=== PATIENT | female | born 1985 | race Caucasian/White ===

== ENCOUNTER 2016-10-21 13:56 | Emergency (ER) | payer MEDICAID ==
[2016-10-21 14:22] VITALS: BP 130/75
--- NOTE | 2016-10-21 14:53 | EDM.PDOC ---
ED HPI GENERAL MEDICAL PROBLEM - General Chief Complaint: Respiratory Problem Stated Complaint: SOB Time Seen by Provider: 10/21/16 14:07 Source of Information: Reports: Patient, RN Notes Reviewed - History of Present Illness INITIAL COMMENTS - FREE TEXT/NARRATIVE: 31-year-old female has been referred here from the [facility] for evaluation of cough, wheezing, difficulty breathing. She does have history of reactive airway disease, probable asthma that has given her trouble for many years. She states now the last several months this has been much worse. She is about 7 weeks 6 para 4. Other than her cough and difficulty breathing she has not had other problems at all with this . Her cough has been nonproductive. No recent fever or chills. No recent abdominal pain nausea or vomiting. She has been using a hand-held albuterol inhaler. She does not have a nebulizer. She's had some very mild peripheral leg edema but not severe. - Related Data Allergies Allergy/AdvReac Type Severity Reaction Status Date / Time trecfedera Allergy Hives Uncoded 10/21/16 14:05 Home Meds: Home Meds . 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 Denies: Throat Pain, Vision Change Respiratory: Reports: Shortness of Breath, Wheezing, Cough. Denies: Sputum, Hemoptysis Cardiovascular: Reports: Edema (Trace bilateral legs). Denies: Chest Pain GI/Abdominal: Denies: Abdominal Pain, Nausea, Vomiting Musculoskeletal: Reports: No Symptoms Skin: Reports: No Symptoms Neurological: Denies: Numbness, Tingling ED EXAM, GENERAL - Physical Exam Exam: See Below General Appearance: Alert, Mild Distress, Other (Somewhat frequent nonproductive cough) Eye Exam: Bilateral Eye: PERRL Nose: Normal Inspection Throat/Mouth: Normal Inspection, Normal Oropharynx Head: No: Facial Swelling Neck: Supple. No: Lymphadenopathy (L), Lymphadenopathy (R) Respiratory/Chest: Respiratory Distress (Mild tachypnea), Wheezing. No: Rales, Rhonchi (Moderate) Cardiovascular: Regular Rate, Rhythm GI/Abdominal: Soft, Non-Tender, Other (Appropriately distended) Extremities: Normal Inspection, Normal Range of Motion Neurological: Alert, Oriented, No Motor/Sensory Deficits Skin Exam: Warm, Dry, Normal Color Course - Vital Signs Last Recorded V/S: Last Vital Signs Temp 98.5 F 10/21/16 14:05 Pulse 100 10/21/16 14:05 Resp 22 H 10/21/16 14:05 BP 130/75 10/21/16 14:19 Pulse Ox 95 10/21/16 15:25 - Orders/Labs/Meds Orders: Active Orders 24 hr Category Date Time Status RT Aerosol Therapy [RC] ASDIRECTED Care 10/21/16 15:25 Active Labs: Laboratory Tests 10/21/16 10/21/16 Range/Units 15:30 15:30 WBC 10.56 H (3.98-10.04) K/mm3 RBC 3.90 L (3.98-5.22) M/mm3 Hgb 10.1 L (11.2-15.7) gm/L Hct 31.5 L (34.1-44.9) % MCV 80.8 (79.4-94.8) fl MCH 25.9 (25.6-32.2) pg MCHC 32.1 L (32.2-35.5) g/dl RDW Std Deviation 41.9 (36.4-46.3) fL Plt Count 258 (182-369) K/mm3 MPV 11.6 (9.4-12.3) fl Neut % (Auto) 73.0 H (34.0-71.1) % Lymph % (Auto) 14.1 L (19.3-51.7) % [place] % (Auto) 5.8 (4.7-12.5) % Eos % (Auto) 6.6 H (0.7-5.8) Baso % (Auto) 0.2 (0.1-1.2) % Neut # (Auto) 7.71 H (1.56-6.13) K/mm3 Lymph # (Auto) 1.49 (1.18-3.74) K/mm3 [place] # (Auto) 0.61 H (0.24-0.36) K/mm3 Eos # (Auto) 0.70 H (0.04-0.36) K/mm3 Baso # (Auto) 0.02 (0.01-0.08) K/mm3 Sodium 136 (136-145) mEq/L Potassium 3.7 (3.5-5.1) mEq/L Chloride 104 (98-107) mEq/L Carbon Dioxide 25 (21-32) mEq/L Anion Gap 10.7 (5-15) BUN 5 L (7-18) mg/dL Creatinine 0.6 (0.55-1.02) mg/dL Est Cr Clr Drug Dosing 119.47 mL/min Estimated GFR (MDRD) > 60 (>60) mL/min BUN/Creatinine Ratio 8.3 L (14-18) Glucose 79 (74-106) mg/dL Calcium 9.6 (8.5-10.1) mg/dL Total Bilirubin 0.2 (0.2-1.0) mg/dL AST 8 L (15-37) U/L ALT 15 (14-59) U/L Alkaline Phosphatase 79 (46-116) U/L Total Protein 7.3 (6.4-8.2) g/dl Albumin 3.1 L (3.4-5.0) g/dl Globulin 4.2 gm/dL Albumin/Globulin Ratio 0.7 L (1-2) Meds: Medications Discontinued Medications Generic Name Dose Route Start Last Admin Trade Name Freq PRN Reason Stop Dose Admin Albuterol 2.5 mg 10/21/16 15:25 10/21/16 15:36 Proventil Neb Soln NEB 10/21/16 15:26 2.5 mg ONETIME ONE Administration Prednisone 40 mg 10/21/16 15:57 10/21/16 16:06 Prednisone PO 10/21/16 15:58 40 mg ONETIME ONE Administration - Re-Assessments/Exams Free Text/Narrative Re-Assessment/Exam: 10/21/16 16:04, risks benefits of chest x-ray discussed with patient. Because of the shortness of breath that she does have associated with her cough and wheezing I feel that a chest x-ray is helpful to better evaluate her pulmonary status. Has been done with appropriate shielding, no fluid or infiltrate visible. Heart size normal. Labs have come back all relatively normal. We have given an albuterol neb. She continues to wheeze after the neb. I did discuss risks benefits of a course of prednisone therapy with her OB ambulance assistant completion supervisor. In view of her worsening wheezing difficulty breathing a short term course of prednisone is reasonable. We'll give 40 mg now. Will then have her take 40 mg for the next 3 days and then taper over the following 3 days. Baby has been active for her. If not already done I will have our staff check heart tones. She has had prior OB ultrasound. She has a visit scheduled for next week with an OB Community Aide at [place]. Departure - Departure Time of Disposition: 16:16 Disposition: Home, Self-Care 01 Condition: Fair Clinical Impression: Third trimester Asthma Qualifiers: Asthma severity: moderate persistent Asthma complication type: with acute exacerbation Qualified Code(s): J45.41 - Moderate persistent asthma with (acute ) exacerbation - Discharge Information Instructions: Asthma, Adult Referrals: PCP,None [Primary Care Provider] - Forms: ED Department Discharge Additional Instructions: Albuterol nebs every 4-6 hours as needed for wheezing or difficulty breathing, prednisone as prescribed, you have been given 40 mg orally while here in the ED. 40 mg orally for the next 2 mornings, then 20 mg daily for 2 days, then 10 mg daily for 2 days. See your OB ambulance assistant next week as planned, return to ED as needed if symptoms worsening in any way - My Orders Last 24 Hours: My Active Orders 10/21/16 15:25 RT Aerosol Therapy [RC] ASDIRECTED - Assessment/Plan Last 24 Hours: My Active Orders 10/21/16 15:25 RT Aerosol Therapy [RC] ASDIRECTED
[2016-10-21] MEDS ORDERED: Albuterol 0.083% 2.5 MG/3 ML Neb Soln NEB ONE (15:25)
[2016-10-21] MEDS ORDERED: predniSONE 20 MG Tab PO ONE (15:57)
--- NOTE | 2016-10-21 16:02 | CR ---
Chest: Frontal view of the chest was obtained. Comparison: No previous study. Heart size and mediastinum are within normal limits. Lungs are clear. Bony structures are grossly intact. Impression: 1. Nothing acute is seen on frontal chest x-ray. Diagnostic code #1
== END 2016-10-21 16:41 | disposition home or self-care (01) ==
LOC: JD.ED 13:56
DX: O99.511 Diseases of the respiratory system complicating pregnancy, first trimester (principal); J45.41 Moderate persistent asthma with (acute) exacerbation; Z90.49 Acquired absence of other specified parts of digestive tract; Z3A.01 Less than 8 weeks gestation of pregnancy
CPT/HCPCS: 36415; 71010; 80053; 85025; 94664; 99285; A9270; 99284

== ENCOUNTER 2017-01-10 10:20 | Inpatient (IN) | payer MEDICAID ==
[2017-01-10] MEDS ORDERED: Nalbuphine 20 MG/1 ML Amp IVPUSH PRN (10:45)
[2017-01-10] MEDS ORDERED: Sodium Chloride 0.9% 10 ML Syringe FLUSH PRN (10:45)
--- NOTE | 2017-01-10 10:52 | PCM.LDHP ---
L&D History of Present Illness - General Date of Service: 01/10/17 Admit Problem/Dx: Admission Diagnosis/Problem Admission Diagnosis/Problem Source of Information: Patient History Limitations: Reports: No Limitations - History of Present Illness Introduction:: 31 y/o HARVEY 01/16/2017 EGA 39w1d. GBS negative Plan induction. Improves with: Reports: None Worsens with: Reports: None Associated Symptoms: Reports: N - Related Data Allergies/Adverse Reactions: Allergies Allergy/AdvReac Type Severity Reaction Status Date / Time trecfedera Allergy Hives Uncoded 10/21/16 14:05 Home Medications: Home Meds . 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: : 6 Para: 4 ([id number]) Other OB/BYN History: 7 months now Musculoskeletal History: Reports: None - Past Surgical History HEENT Surgical History: Reports: Oral Surgery Other HEENT Surgeries/Procedures: sinus surgery GI Surgical History: Reports: Cholecystectomy Social & Family History - Tobacco Use Smoking Status *Q: Never Smoker H&P Review of Systems - Review of Systems: Review Of Systems: See Below General: Reports: No Symptoms HEENT: Reports: No Symptoms Pulmonary: Reports: No Symptoms Cardiovascular: Reports: No Symptoms Gastrointestinal: Reports: No Symptoms Genitourinary: Reports: No Symptoms Musculoskeletal: Reports: No Symptoms Skin: Reports: No Symptoms Psychiatric: Reports: No Symptoms Neurological: Reports: No Symptoms Hematologic/Lymphatic: Reports: No Symptoms Immunologic: Reports: No Symptoms L&D Exam - Exam Exam: See Below - OB Specific Fundal Height In cm: 39 Movement: Active Heart Tones: Present Heart Tones per Min: 135 Heart Rate (FHR) Variability: Moderate (6-25 bmp) Presentation: Vertex Estimated Weight: 7.5 - Hernandez Score Hernandez Score Cervix Position: Posterior Hernandez Score Consistency: Soft Hernandez Score Effacement: 31-50% Hernandez Score Dilation: 1-2 cm Hernandez Score Infant's Station: -3 Hernandez Score Total: 4 - Exam General: Alert, Oriented HEENT: PERRLA, Conjunctiva Clear, EACs Clear, EOMI, Hearing Intact, Mucosa Moist & [place], Nares Patent, Normal Nasal Septum, Posterior Pharynx Clear, TMs Clear Neck: Supple, Trachea Midline Lungs: Clear to Auscultation, Normal Respiratory Effort Cardiovascular: Regular Rate, Regular Rhythm GI/Abdominal Exam: Normal Bowel Sounds, Soft, Non-Tender, No Organomegaly, No Distention, No Abnormal Bruit, No Mass, Pelvis Stable Rectal Exam: Normal Exam, Normal Rectal Tone Genitourinary: Normal external exam, Normal bimanual exam, Normal speculum exam Back Exam: Normal Inspection, Full Range of Motion Extremities: Normal Inspection, Normal Range of Motion, Non-Tender, No Pedal Edema, Normal Capillary Refill Skin: Warm, Dry, Intact Neurological: Cranial Nerves Intact, Reflexes Equal Bilateral Psychiatric: Alert, Normal Affect, Normal Mood - Problem List (1) 39 weeks gestation of SNOMED Code(s): 00022745 ICD Code: Z3A.39 - 39 WEEKS GESTATION OF Status: Acute Current Visit: Yes Problem List Initiated/Reviewed/Updated: No Orders Last 24hrs: Active Orders 24 hr Category Date Time Status Communication Order [RC] ASDIRECTED Care 01/10/17 10:45 Ordered Communication Order [RC] ASDIRECTED Care 01/10/17 10:45 Ordered Communication Order [RC] ASDIRECTED Care 01/10/17 10:45 Ordered Monitoring [RC] INTERMITTENT Care 01/10/17 10:45 Ordered Notify Provider [RC] ASDIRECTED Care 01/10/17 10:45 Ordered Peripheral IV Care [RC] . DIRECTED Care 01/10/17 10:45 Ordered Vaginal Exam [RC] ASDIRECTED Care 01/10/17 10:45 Ordered Vital Signs [RC] ASDIRECTED Care 01/10/17 10:45 Ordered Clear Liquid Diet [DIET] Diet 01/10/17 Lunch Ordered CBC W/O DIFF,HEMOGRAM [HEME] Stat Lab 01/10/17 10:45 Ordered TYPE AND SCREEN [BBK] Stat Lab 01/10/17 10:45 Ordered Lactated Ringers [Ringers, Lactated] 1,000 ml Med 01/10/17 10:45 Ordered IV ASDIRECTED Misoprostol [Cytotec] Med 01/10/17 10:45 Ordered 25 mcg VAG Q3H Nalbuphine [Nubain] Med 01/10/17 10:45 Ordered 10 mg IVPUSH Q3H PRN Sodium Chloride 0.9% [Saline Flush] Med 01/10/17 10:45 Ordered 10 ml FLUSH ASDIRECTED PRN Peripheral IV Insertion Adult [OM.PC] Routine Oth 01/10/17 10:45 Ordered
[2017-01-10] MEDS: Misoprostol 25 MCG (1/4 of 100 MCG) Tab VAG SCH ×4 (11:07→20:35)
--- NOTE | 2017-01-10 16:28 | PCM.SN ---
- Free Text/Narrative Note: Cervix 1-2, 50%, Soft, Posterior, Vertex-2. Irregular contractions. Continue Cytotec 25 mcg q3h x5 doase. Cat I FHR.
--- NOTE | 2017-01-10 20:31 | PCM.SN ---
- Free Text/Narrative Note: cytotech placed by RN exam by RN showed cervix 3-4 cm dilated epidural placed shortly. Category 1 heart rate.
[2017-01-10] MEDS: Lactated Ringers 1,000 ML IV SCH ×2 (20:35→22:18)
--- NOTE | 2017-01-10 21:01 | PCM.PREANE ---
Preanesthetic Assessment - Procedure Proposed Procedure: DESHAWN - Anesthesia/Transfusion/Family Hx Anesthesia History: Prior Anesthesia Without Reaction Family History of Anesthesia Reaction: No Transfusion History: Prior Transfusion Without Reaction Type of Transfusion Reactions: Reports: Other (see below) Other Type of Transfusion Reaction: itching - Review of Systems General: No Symptoms Pulmonary: Other (asthma (environmental causes, uses no inhaler)) Cardiovascular: No Symptoms Gastrointestinal: Other (GERD ) Neurological: Headache, Other (multiple sclerosis) Other: Reports: Easy Bleeding, Easy Bruising - Physical Assessment NPO Status Date: 01/10/17 NPO Status Time: 17:00 Respiratory Rate: 16 Vital Signs: Last Vital Signs Temp 36.4 C 01/10/17 10:45 Pulse 102 H 01/10/17 10:45 Resp 16 01/10/17 10:45 BP 113/77 01/10/17 10:45 Pulse Ox Height: 1.6 m Weight: 116.12 kg ASA Class: 2 Mental Status: Alert & Oriented x3 Dentition: Reports: Normal Dentition Thyro-Mental Finger Breadths: 3 Mouth Opening Finger Breadths: 3 ROM/Head Extension: Full Lungs: Clear to Auscultation, Normal Respiratory Effort Cardiovascular: Regular Rate, Regular Rhythm - Lab Values: Laboratory Last Values WBC 7.14 K/mm3 (3.98-10.04) 01/10/17 11:18 RBC 3.54 M/mm3 (3.98-5.22) L 01/10/17 11:18 Hgb 8.4 gm/L (11.2-15.7) L 01/10/17 11:18 Hct 26.9 % (34.1-44.9) L 01/10/17 11:18 MCV 76.0 fl (79.4-94.8) L 01/10/17 11:18 MCH 23.7 pg (25.6-32.2) L 01/10/17 11:18 MCHC 31.2 g/dl (32.2-35.5) L 01/10/17 11:18 RDW Std Deviation 40.8 fL (36.4-46.3) 01/10/17 11:18 Plt Count 274 K/mm3 (182-369) 01/10/17 11:18 MPV 11.3 fl (9.4-12.3) 01/10/17 11:18 Blood Type A NEGATIVE 01/10/17 11:18 Gel Antibody Screen Positive 01/10/17 11:18 - Allergies Allergies/Adverse Reactions: Allergies Allergy/AdvReac Type Severity Reaction Status Date / Time trecfedera Allergy Hives Uncoded 10/21/16 14:05 - Blood Blood Available: No Product(s) Available: None - Anesthesia Plan Pre-Op Medication Ordered: None - Acknowledgements Anesthesia Type Planned: Epidural Pt an Appropriate Candidate for the Planned Anesthesia: Yes Alternatives and Risks of Anesthesia Discussed w Pt/Guardian: Yes Pt/Guardian Understands and Agrees with Anesthesia Plan: Yes PreAnesthesia Questionnaire Respiratory History: Reports: 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 [No Known Home Meds] 10/21/16 [History] - CURRENT (IN HOUSE) MEDS Current Meds: Current Medications Lactated Ringer's (Ringers, Lactated) 1,000 mls @ 40 mls/hr IV ASDIRECTED BRIANA Last Admin: 01/10/17 20:35 Dose: 40 mls/hr Misoprostol (Cytotec) 25 mcg VAG Q3H BRIANA Stop: 01/10/17 23:01 Last Admin: 01/10/17 20:35 Dose: 25 mcg Nalbuphine HCl (Nubain) 10 mg IVPUSH Q3H PRN PRN Reason: Pain Sodium Chloride (Saline Flush) 10 ml FLUSH ASDIRECTED PRN PRN Reason: Keep Vein Open Discontinued Medications Misoprostol (Cytotec) 25 mcg VAG Q3H BRIANA Stop: 01/10/17 17:01 Last Admin: 01/10/17 17:07 Dose: 25 mcg
[2017-01-10] MEDS ORDERED: Oxytocin/Lactated Ringers 20 UNIT/1,000 ML BAG IV ONE (21:07)
[2017-01-10] MEDS ORDERED: fentaNYL 100 MCG/2 ML SDV EPIDUR PRN (21:12)
[2017-01-10] MEDS ORDERED: Ondansetron 4 MG/2 ML SDV IVPUSH PRN (21:12)
[2017-01-10] MEDS ORDERED: diphenhydrAMINE 50 MG/ML SDV IVPUSH PRN (21:12)
[2017-01-10] MEDS ORDERED: Bupivacaine/fentaNYL/NS 100 ML Bag EPIDUR SCH (21:15)
[2017-01-11] MEDS: Lactated Ringers 1,000 ML IV SCH (03:57)
[2017-01-11] MEDS: Misoprostol 25 MCG (1/4 of 100 MCG) Tab VAG SCH (04:00)
--- NOTE | 2017-01-11 07:02 | PCM.DEL ---
L & D Note - General Info Date of Service: 01/11/17 Mother's Due Date: 01/16/17 - Delivery Note Labor: Augmented by Oxytocin Cervical Ripening Method: Misoprostil Delivery Outcome: Livebirth (female 0648 Tuesday01/11/2017 APGARs 8/9 weight 3400 g/7# 7.9 oz, ANTONIA) Infant Delivery Method: Spontaneous Vaginal Delivery-Single Infant Delivery Mode: Spontaneous Presentation: Left Occiput Anterior (ANTONIA) Nuchal Cord: Present (tight reduced over the shoulder) Prep: Povidone-Iodine (Betadine Anesthesia Type: Epidural Amniotic Fluid Description: Clear Episiotomy Type: None Laceration: None Placenta: Intact, Spontaneous (0650 01/11/2017 Home) Cord: 3 Vessels Estimated Blood Loss: 250 Resuscitation Needed: No : Suctioned, Bulb Syringe, Cathether, Stimulated, Warmed, [place] Used, Warmer Used Provider: Damian James Score 1 min: 8 Score 5 min: 9 - Patient Data Vitals - Most Recent: Last Vital Signs Temp 97.5 F 01/10/17 10:45 Pulse 102 H 01/10/17 10:45 Resp 16 01/10/17 21:12 BP 113/77 01/10/17 10:45 Pulse Ox Weight - Most Recent: 256 lb Lab Results Last 24 Hours: Laboratory Results - last 24 hr 01/10/17 01/10/17 01/10/17 Range/Units 11:18 11:18 11:18 WBC 7.14 (3.98-10.04) K/mm3 RBC 3.54 L (3.98-5.22) M/mm3 Hgb 8.4 L (11.2-15.7) gm/L Hct 26.9 L (34.1-44.9) % MCV 76.0 L (79.4-94.8) fl MCH 23.7 L (25.6-32.2) pg MCHC 31.2 L (32.2-35.5) g/dl RDW Std Deviation 40.8 (36.4-46.3) fL Plt Count 274 (182-369) K/mm3 MPV 11.3 (9.4-12.3) fl Blood Type Cancelled A NEGATIVE Gel Antibody Screen Cancelled Positive Med Orders - Current: Current Medications Diphenhydramine HCl (Benadryl) 25 mg IVPUSH Q6H PRN PRN Reason: Pruritis Fentanyl (Sublimaze) 100 mcg EPIDUR Q3H PRN PRN Reason: Pain Last Admin: 01/10/17 22:07 Dose: 100 mcg Fentanyl/Bupivacaine HCl (Fentanyl/Bupivacaine/Ns 2 Mcg-0.125% 100 Ml) 100 ml EPIDUR ASDIRECTED BRIANA Last Admin: 01/10/17 22:07 Dose: 100 ml Lactated Ringer's (Ringers, Lactated) 1,000 mls @ 40 mls/hr IV ASDIRECTED BRIANA Last Admin: 01/11/17 03:57 Dose: 40 mls/hr Oxytocin 20 unit/ Lactated (Ringer's) 1,002 mls @ 6.01 mls/hr IV TITRATE BRIANA; 2 MUNITS/MIN PRN Reason: Protocol Last Titration: 01/11/17 05:15 Dose: 6 munits/min, 18.03 mls/hr Nalbuphine HCl (Nubain) 10 mg IVPUSH Q3H PRN PRN Reason: Pain Ondansetron HCl (Zofran) 4 mg IVPUSH ONETIME PRN PRN Reason: Nausea/Vomiting Sodium Chloride (Saline Flush) 10 ml FLUSH ASDIRECTED PRN PRN Reason: Keep Vein Open Discontinued Medications Oxytocin/Lactated Ringer's (Pitocin In Lr 20 Units/1,000 Ml) Confirm Administered Dose 20 unit in 1,000 mls @ as directed IV .STK-MED ONE Stop: 01/10/17 21:08 Last Admin: 01/11/17 03:59 Dose: Not Given Misoprostol (Cytotec) 25 mcg VAG Q3H BRIANA Stop: 01/10/17 17:01 Last Admin: 01/10/17 17:07 Dose: 25 mcg Misoprostol (Cytotec) 25 mcg VAG Q3H BRIANA Stop: 01/10/17 23:01 Last Admin: 01/11/17 04:00 Dose: Not Given - Problem List & Annotations (1) 39 weeks gestation of SNOMED Code(s): 65384393 Code(s): Z3A.39 - 39 WEEKS GESTATION OF Status: Acute Current Visit: Yes (2) Nuchal cord, delivered, current hospitalization SNOMED Code(s): 631773657 Code(s): O69.81X0 - LABOR AND DEL COMP BY CORD AROUND NECK, W/O COMPRSN, UNSP Status: Acute Current Visit: Yes - Problem List Review Problem List Initiated/Reviewed/Updated: No - My Orders Last 24 Hours: My Active Orders 01/10/17 10:45 Communication Order [RC] ASDIRECTED Communication Order [RC] ASDIRECTED Communication Order [RC] ASDIRECTED Monitoring [RC] INTERMITTENT Notify Provider [RC] ASDIRECTED Peripheral IV Care [RC] . DIRECTED Vaginal Exam [RC] ASDIRECTED Vital Signs [RC] ASDIRECTED Lactated Ringers [Ringers, Lactated] 1,000 ml IV ASDIRECTED Nalbuphine [Nubain] 10 mg IVPUSH Q3H PRN Sodium Chloride 0.9% [Saline Flush] 10 ml FLUSH ASDIRECTED PRN Peripheral IV Insertion Adult [OM.PC] Routine 01/10/17 11:18 ANTIBODY IDENTIFICATION [BBK] Stat TYPE AND SCREEN [BBK] Stat 01/10/17 22:30 Oxytocin [Pitocin] 20 unit Lactated Ringers [Ringers, Lactated] 1,000 ml IV TITRATE 01/10/17 Lunch Regular Diet [DIET] 01/11/17 00:11 Insert Urinary Catheter [OM.PC] ONETIME 01/11/17 00:14 Urinary Catheter Assessment [RC] ASDIRECTED
[2017-01-11] MEDS ORDERED: Witch Hazel Medicated Pads 100/Jar TOP PRN (07:51)
[2017-01-11] MEDS ORDERED: Lanolin 100% Cream 7 GM Tube TOP PRN (07:51)
[2017-01-11] MEDS ORDERED: Benzocaine/Menthol 20%-0.5% Spray 56 GM Canister TOP PRN (07:51)
[2017-01-11] MEDS ORDERED: Acetaminophen 325 MG Tab PO PRN (07:51)
[2017-01-11] MEDS ORDERED: Docusate Sodium 100 MG Cap PO PRN (07:51)
[2017-01-11] MEDS ORDERED: Bupivacaine 0.25% 10 ML SDV ONE (07:51)
[2017-01-11] MEDS ORDERED: Ibuprofen 600 MG Tab PO PRN (07:51)
--- NOTE | 2017-01-11 13:59 | PCM48HPAN ---
Post Anesthesia Note - EVALUATION WITHIN 48HRS OF ANESTHETIC Vital Signs in Normal Range: Yes Patient Participated in Evaluation: Yes Respiratory Function Stable: Yes Airway Patent: Yes Cardiovascular Function Stable: Yes Hydration Status Stable: Yes Pain Control Satisfactory: Yes Nausea and Vomiting Control Satisfactory: Yes Mental Status Recovered: Yes - COMMENTS/OBSERVATIONS Free Text/Narrative:: Keke is doing well today. She felt her back was sore today. She has been up ambulating. She denies headach and numbness/tingling to her lower extremities. No further questions at this time.
[2017-01-12 07:33] VITALS: BP 136/87
--- NOTE | 2017-01-12 08:23 | PCM.DCSUM1 ---
Discharge Summary - Hospital Course Free Text/Narrative:: [facility] LIVE L/D Delivery Note Patient Name: SHILOH BONILLA Date of : 89 Patient Status: Inpatient Attending Provider: Damian James Date: 01/11/17 07:00 Initialization Date: 01/11/17 07:00 L & D Note - General Info Date of Service: 01/11/17 Mother's Due Date: 01/16/17 - Delivery Note Labor: Augmented by Oxytocin Cervical Ripening Method: Misoprostil Delivery Outcome: Livebirth (female 64701/11/2017 APGARs 8/9 weight 3400 g/7# 7.9 oz, ANTONIA) Infant Delivery Method: Spontaneous Vaginal Delivery-Single Infant Delivery Mode: Spontaneous Presentation: Left Occiput Anterior (ANTONIA) Nuchal Cord: Present (tight reduced over the shoulder) Prep: Povidone-Iodine (Betadine Anesthesia Type: Epidural Amniotic Fluid Description: Clear Episiotomy Type: None Laceration: None Placenta: Intact, Spontaneous (64901/11/2017 Home) Cord: 3 Vessels Estimated Blood Loss: 250 Resuscitation Needed: No [place]: Suctioned, Bulb Syringe, Cathether, Stimulated, Warmed, [place] Used, Warmer Used Provider: Damian James Score 1 min: 8 Score 5 min: 9 - Patient Data Vitals - Most Recent: Last Vital Signs Temp 97.5 F 01/10/17 10:45 Pulse 102 H 01/10/17 10:45 Resp 16 01/10/17 21:12 BP 113/77 01/10/17 10:45 Pulse Ox Weight - Most Recent: 256 lb Lab Results Last 24 Hours: Laboratory Results - last 24 hr 01/10/17 01/10/17 01/10/17 Range/Units 11:18 11:18 11:18 WBC 7.14 (3.98-10.04) K/mm3 RBC 3.54 L (3.98-5.22) M/mm3 Hgb 8.4 L (11.2-15.7) gm/L Hct 26.9 L (34.1-44.9) % MCV 76.0 L (79.4-94.8) fl MCH 23.7 L (25.6-32.2) pg MCHC 31.2 L (32.2-35.5) g/dl RDW Std Deviation 40.8 (36.4-46.3) fL Plt Count 274 (182-369) K/mm3 MPV 11.3 (9.4-12.3) fl Blood Type Cancelled A NEGATIVE Gel Antibody Screen Cancelled Positive Med Orders - Current: Current Medications Diphenhydramine HCl (Benadryl) 25 mg IVPUSH Q6H PRN PRN Reason: Pruritis Fentanyl (Sublimaze) 100 mcg EPIDUR Q3H PRN PRN Reason: Pain Last Admin: 01/10/17 22:07 Dose: 100 mcg Fentanyl/Bupivacaine HCl (Fentanyl/Bupivacaine/Ns 2 Mcg-0.125% 100 Ml) 100 ml EPIDUR ASDIRECTED BRIANA Last Admin: 01/10/17 22:07 Dose: 100 ml Lactated Ringer's (Ringers, Lactated) 1,000 mls @ 40 mls/hr IV ASDIRECTED BRIANA Last Admin: 01/11/17 03:57 Dose: 40 mls/hr Oxytocin 20 unit/ Lactated (Ringer's) 1,002 mls @ 6.01 mls/hr IV TITRATE BRIANA; 2 MUNITS/MIN PRN Reason: Protocol Last Titration: 01/11/17 05:15 Dose: 6 munits/min, 18.03 mls/hr Nalbuphine HCl (Nubain) 10 mg IVPUSH Q3H PRN PRN Reason: Pain Ondansetron HCl (Zofran) 4 mg IVPUSH ONETIME PRN PRN Reason: Nausea/Vomiting Sodium Chloride (Saline Flush) 10 ml FLUSH ASDIRECTED PRN PRN Reason: Keep Vein Open Discontinued Medications Oxytocin/Lactated Ringer's (Pitocin In Lr 20 Units/1,000 Ml) Confirm Administered Dose 20 unit in 1,000 mls @ as directed IV .STK-MED ONE Stop: 01/10/17 21:08 Last Admin: 01/11/17 03:59 Dose: Not Given Misoprostol (Cytotec) 25 mcg VAG Q3H BRIANA Stop: 01/10/17 17:01 Last Admin: 01/10/17 17:07 Dose: 25 mcg Misoprostol (Cytotec) 25 mcg VAG Q3H BRIANA Stop: 01/10/17 23:01 Last Admin: 01/11/17 04:00 Dose: Not Given - Problem List & Annotations (1) 39 weeks gestation of SNOMED Code(s): 25995131 Code(s): Z3A.39 - 39 WEEKS GESTATION OF Status: Acute Current Visit: Yes (2) Nuchal cord, delivered, current hospitalization SNOMED Code(s): 682542737 Code(s): O69.81X0 - LABOR AND DEL COMP BY CORD AROUND NECK, W/O COMPRSN, UNSP Status: Acute Current Visit: Yes - Problem List Review Problem List Initiated/Reviewed/Updated: No - My Orders Last 24 Hours: My Active Orders 01/10/17 10:45 Communication Order [RC] ASDIRECTED Communication Order [RC] ASDIRECTED Communication Order [RC] ASDIRECTED Monitoring [RC] INTERMITTENT Notify Provider [RC] ASDIRECTED Peripheral IV Care [RC] . DIRECTED Vaginal Exam [RC] ASDIRECTED Vital Signs [RC] ASDIRECTED Lactated Ringers [Ringers, Lactated] 1,000 ml IV ASDIRECTED Nalbuphine [Nubain] 10 mg IVPUSH Q3H PRN Sodium Chloride 0.9% [Saline Flush] 10 ml FLUSH ASDIRECTED PRN Peripheral IV Insertion Adult [OM.PC] Routine 01/10/17 11:18 ANTIBODY IDENTIFICATION [BBK] Stat TYPE AND SCREEN [BBK] Stat 01/10/17 22:30 Oxytocin [Pitocin] 20 unit Lactated Ringers [Ringers, Lactated] 1,000 ml IV TITRATE 01/10/17 Lunch Regular Diet [DIET] 01/11/17 00:11 Insert Urinary Catheter [OM.PC] ONETIME 01/11/17 00:14 Urinary Catheter Assessment [RC] ASDIRECTED HPI Initial Comments: [facility] LIVE L/D Delivery Note Patient Name: SHILOH BONILLA Date of : 89 Patient Status: Inpatient Attending Provider: Damian James Date: 01/11/17 07:00 Initialization Date: 01/11/17 07:00 L & D Note - General Info Date of Service: 01/11/17 Mother's Due Date: 01/16/17 - Delivery Note Labor: Augmented by Oxytocin Cervical Ripening Method: Misoprostil Delivery Outcome: Livebirth (female 0648 Tuesday01/11/2017 APGARs 8/9 weight 3400 g/7# 7.9 oz, ANTONIA) Delivery Method: Spontaneous Vaginal Delivery-Single Delivery Mode: Spontaneous Presentation: Left Occiput Anterior (ANTONIA) Nuchal Cord: Present (tight reduced over the shoulder) Prep: Povidone-Iodine (Betadine Anesthesia Type: Epidural Amniotic Fluid Description: Clear Episiotomy Type: None Laceration: None Placenta: Intact, Spontaneous (0650 01/11/2017 Home) Cord: 3 Vessels Estimated Blood Loss: 250 Resuscitation Needed: No : Suctioned, Bulb Syringe, Cathether, Stimulated, Warmed, [place] Used, Warmer Used Provider: Damian James Score 1 min: 8 Score 5 min: 9 - Patient Data Vitals - Most Recent: Last Vital Signs Temp 97.5 F 01/10/17 10:45 Pulse 102 H 01/10/17 10:45 Resp 16 01/10/17 21:12 BP 113/77 01/10/17 10:45 Pulse Ox Weight - Most Recent: 256 lb Lab Results Last 24 Hours: Laboratory Results - last 24 hr 01/10/17 01/10/17 01/10/17 Range/Units 11:18 11:18 11:18 WBC 7.14 (3.98-10.04) K/mm3 RBC 3.54 L (3.98-5.22) M/mm3 Hgb 8.4 L (11.2-15.7) gm/L Hct 26.9 L (34.1-44.9) % MCV 76.0 L (79.4-94.8) fl MCH 23.7 L (25.6-32.2) pg MCHC 31.2 L (32.2-35.5) g/dl RDW Std Deviation 40.8 (36.4-46.3) fL Plt Count 274 (182-369) K/mm3 MPV 11.3 (9.4-12.3) fl Blood Type Cancelled A NEGATIVE Gel Antibody Screen Cancelled Positive Med Orders - Current: Current Medications Diphenhydramine HCl (Benadryl) 25 mg IVPUSH Q6H PRN PRN Reason: Pruritis Fentanyl (Sublimaze) 100 mcg EPIDUR Q3H PRN PRN Reason: Pain Last Admin: 01/10/17 22:07 Dose: 100 mcg Fentanyl/Bupivacaine HCl (Fentanyl/Bupivacaine/Ns 2 Mcg-0.125% 100 Ml) 100 ml EPIDUR ASDIRECTED BRIANA Last Admin: 01/10/17 22:07 Dose: 100 ml Lactated Ringer's (Ringers, Lactated) 1,000 mls @ 40 mls/hr IV ASDIRECTED BRIANA Last Admin: 01/11/17 03:57 Dose: 40 mls/hr Oxytocin 20 unit/ Lactated (Ringer's) 1,002 mls @ 6.01 mls/hr IV TITRATE BRIANA; 2 MUNITS/MIN PRN Reason: Protocol Last Titration: 01/11/17 05:15 Dose: 6 munits/min, 18.03 mls/hr Nalbuphine HCl (Nubain) 10 mg IVPUSH Q3H PRN PRN Reason: Pain Ondansetron HCl (Zofran) 4 mg IVPUSH ONETIME PRN PRN Reason: Nausea/Vomiting Sodium Chloride (Saline Flush) 10 ml FLUSH ASDIRECTED PRN PRN Reason: Keep Vein Open Discontinued Medications Oxytocin/Lactated Ringer's (Pitocin In Lr 20 Units/1,000 Ml) Confirm Administered Dose 20 unit in 1,000 mls @ as directed IV .STK-MED ONE Stop: 01/10/17 21:08 Last Admin: 01/11/17 03:59 Dose: Not Given Misoprostol (Cytotec) 25 mcg VAG Q3H [facility] Stop: 01/10/17 17:01 Last Admin: 01/10/17 17:07 Dose: 25 mcg Misoprostol (Cytotec) 25 mcg VAG Q3H BRIANA Stop: 01/10/17 23:01 Last Admin: 01/11/17 04:00 Dose: Not Given - Problem List & Annotations (1) 39 weeks gestation of SNOMED Code(s): 73624475 Code(s): Z3A.39 - 39 WEEKS GESTATION OF Status: Acute Current Visit: Yes (2) Nuchal cord, delivered, current hospitalization SNOMED Code(s): 525995641 Code(s): O69.81X0 - LABOR AND DEL COMP BY CORD AROUND NECK, W/O COMPRSN, UNSP Status: Acute Current Visit: Yes - Problem List Review Problem List Initiated/Reviewed/Updated: No - My Orders Last 24 Hours: My Active Orders 01/10/17 10:45 Communication Order [RC] ASDIRECTED Communication Order [RC] ASDIRECTED Communication Order [RC] ASDIRECTED Monitoring [RC] INTERMITTENT Notify Provider [RC] ASDIRECTED Peripheral IV Care [RC] . DIRECTED Vaginal Exam [RC] ASDIRECTED Vital Signs [RC] ASDIRECTED Lactated Ringers [Ringers, Lactated] 1,000 ml IV ASDIRECTED Nalbuphine [Nubain] 10 mg IVPUSH Q3H PRN Sodium Chloride 0.9% [Saline Flush] 10 ml FLUSH ASDIRECTED PRN Peripheral IV Insertion Adult [OM.PC] Routine 01/10/17 11:18 ANTIBODY IDENTIFICATION [BBK] Stat TYPE AND SCREEN [BBK] Stat 01/10/17 22:30 Oxytocin [Pitocin] 20 unit Lactated Ringers [Ringers, Lactated] 1,000 ml IV TITRATE 01/10/17 Lunch Regular Diet [DIET] 01/11/17 00:11 Insert Urinary Catheter [OM.PC] ONETIME 01/11/17 00:14 Urinary Catheter Assessment [RC] ASDIRECTED Brief History: [facility] LIVE . L/D Delivery Note. [facility] [id number]. Date of : Patient Status: Inpatient. Attending Provider: Damian James Number: [id number]. Date: 01/11/17 07:00Initialization Date: 01/11/17 07:00. L & D Note. - General Info. Date of Service: 01/11/17. Mother's Due Date: 01/16/17. - Delivery Note. Labor: Augmented by Oxytocin. Cervical Ripening Method: Misoprostil. Delivery Outcome: Livebirth (female 0648 Tuesday APGARs 8/9 weight 3400 g/7# 7.9 oz, ANTONIA). Infant Delivery Method: Spontaneous Vaginal Delivery-Single. Infant Delivery Mode: Spontaneous. Presentation: Left Occiput Anterior (ANTONIA). Nuchal Cord: Present (tight reduced over the shoulder). Prep: Povidone-Iodine (Betadine. Anesthesia Type: Epidural. Amniotic Fluid Description: Clear. Episiotomy Type: None. Laceration: None. Placenta: Intact, Spontaneous (0650 01/11/2017 Home). Cord: 3 Vessels. Estimated Blood Loss: 250. Resuscitation Needed: No. [place] : Suctioned, Bulb Syringe, Cathether, Stimulated, Warmed, [place] Used, Warmer Used. Provider: Damian James. Score 1 min: 8. Score 5 min: 9. - Patient Data. Vitals - Most Recent: Last Vital Signs. Temp 97.5 F 01/10/17 10:45. Pulse 102 H 01/10/17 10:45. Resp 16 01/10/17 21: 12. BP 113/77 01/10/17 10:45. Pulse Ox. Weight - Most Recent: 256 lb. Lab Results Last 24 Hours: Laboratory Results - last 24 hr. 01/10/1711Range/Units. 11:1811:1811:18. WBC 7.14 (3.98-10.04) K/mm3. RBC 3.54 L ( 3.98-5.22) M/mm3. Hgb 8.4 L (11.2-15.7) gm/L. Hct 26.9 L (34.1-44.9) %. MCV 76.0 L (79.4-94.8) fl. MCH 23.7 L (25.6-32.2) pg. MCHC 31.2 L (32.2-35.5 ) g/dl. RDW Std Deviation 40.8 (36.4-46.3) fL. Plt Count 274 (182-369) K/ mm3. MPV 11.3 (9.4-12.3) fl. Blood Type Cancelled A NEGATIVE. Gel Antibody Screen Cancelled Positive. Med Orders - Current: Current Medications. Diphenhydramine HCl (Benadryl) 25 mg IVPUSH Q6H PRN. PRN Reason: Pruritis. Fentanyl (Sublimaze) 100 mcg EPIDUR Q3H PRN. PRN Reason: Pain. Last Admin: 22:07 Dose: 100 mcg. Fentanyl/Bupivacaine HCl (Fentanyl/Bupivacaine/Ns 2 Mcg-0.125% 100 Ml) 100 ml EPIDUR ASDIRECTED BRIANA. Last Admin: 01/10/17 22:07 Dose: 100 ml. Lactated Ringer's (Ringers, Lactated) 1,000 mls @ 40 mls/hr IV ASDIRECTED BRIANA. Last Admin: 01/11/17 03:57 Dose: 40 mls/hr. Oxytocin 20 unit / Lactated (Ringer's) 1,002 mls @ 6.01 mls/hr IV TITRATE BRIANA; 2 MUNITS/MIN. PRN Reason: Protocol. Last Titration: 01/11/17 05:15 Dose: 6 munits/min, 18.03 mls/hr. Nalbuphine HCl (Nubain) 10 mg IVPUSH Q3H PRN. PRN Reason: Pain. Ondansetron HCl (Zofran) 4 mg IVPUSH ONETIME PRN. PRN Reason: Nausea/ Vomiting. Sodium Chloride (Saline Flush) 10 ml FLUSH ASDIRECTED PRN. PRN Reason: Keep Vein Open. Discontinued Medications. Oxytocin/Lactated Ringer's ( Pitocin In Lr 20 Units/1,000 Ml) Confirm Administered Dose 20 unit in 1,000 mls @ as directed IV .STK-MED ONE. Stop: 01/10/17 21:08. Last Admin: 01/11/17 03: 59 Dose: Not Given. Misoprostol (Cytotec) 25 mcg VAG Q3H BRIANA. Stop: 17:01. Last Admin: 01/10/17 17:07 Dose: 25 mcg. Misoprostol (Cytotec) 25 mcg VAG Q3H BRIANA. Stop: 01/10/17 23:01. Last Admin: 01/11/17 04:00 Dose: Not Given. - Problem List & Annotations. (1) 39 weeks gestation of . SNOMED Code(s): 27694288. Code(s): Z3A.39 - 39 WEEKS GESTATION OF Status: Acute Current Visit: Yes. (2) Nuchal cord, delivered, current hospitalization. SNOMED Code(s): 378903475. Code(s): O69.81X0 - LABOR AND DEL COMP BY CORD AROUND NECK, W/O COMPRSN, UNSP Status: Acute Current Visit: Yes. - Problem List Review. Problem List Initiated/Reviewed/Updated: No. - My Orders. Last 24 Hours: My Active Orders. 01/10/17 10:45. Communication Order [RC] ASDIRECTED. Communication Order [RC] ASDIRECTED. Communication Order [RC] ASDIRECTED. Monitoring [RC] INTERMITTENT. Notify Provider [RC ] ASDIRECTED. Peripheral IV Care [RC] . DIRECTED. Vaginal Exam [RC] ASDIRECTED. Vital Signs [RC] ASDIRECTED. Lactated Ringers [Ringers, Lactated] 1,000 ml IV ASDIRECTED. Nalbuphine [Nubain] 10 mg IVPUSH Q3H PRN. Sodium Chloride 0.9% [Saline Flush] 10 ml FLUSH ASDIRECTED PRN. Peripheral IV Insertion Adult [OM.PC] Routine. 01/10/17 11:18. ANTIBODY IDENTIFICATION [BBK ] Stat. TYPE AND SCREEN [BBK] Stat. 01/10/17 22:30. Oxytocin [Pitocin] 20 unit Lactated Ringers [Ringers, Lactated] 1,000 ml IV TITRATE. 01/10/17 Lunch. Regular Diet [DIET]. 01/11/17 00:11. Insert Urinary Catheter [OM.PC] ONETIME. 01/11/17 00:14. Urinary Catheter Assessment [RC] ASDIRECTED - Discharge Data Discharge Date: 01/12/17 Discharge Disposition: Home, Self-Care 01 Condition: Good - Discharge Diagnosis/Problem(s) (1) 39 weeks gestation of SNOMED Code(s): 53601493 ICD Code: Z3A.39 - 39 WEEKS GESTATION OF Status: Acute Current Visit: Yes (2) Nuchal cord, delivered, current hospitalization SNOMED Code(s): 636070229 ICD Code: O69.81X0 - LABOR AND DEL COMP BY CORD AROUND NECK, W/O COMPRSN, UNSP Status: Acute Current Visit: Yes - Patient Summary/Data Complications: None Consults: None Hospital Course: Uneventful - Patient Instructions Diet: Regular Diet as Tolerated Driving: Do Not Drive (48 hours) Showering/Bathing: May Shower Notify Provider of: Fever, Increased Pain, Swelling and Redness, Drainage, Nausea and/or Vomiting - Discharge Plan Home Medications: Home Meds Acetaminophen [Tylenol] 650 mg PO Q6H PRN tablet 01/12/17 [Rx] Benzocaine/Menthol [Dermoplast Pain Relief [place]] 1 spray TOP ASDIRECTED PRN canister 01/12/17 [Rx] Docusate Sodium [Colace] 100 mg PO BID PRN cap 01/12/17 [Rx] Ibuprofen [IJD: Ibuprofen] 600 mg PO Q6H PRN tablet 01/12/17 [Rx] Lanolin [Lansinoh HPA] 1 applic TOP ASDIRECTED PRN tube 01/12/17 [Rx] Witch Char [Tucks] 1 pad TOP ASDIRECTED PRN pad 01/12/17 [Rx] Referrals: Damian James MD [Physician] - (2 weeks) - Discharge Summary/Plan Comment DC Time >30 min.: No - Patient Data Vitals - Most Recent: Last Vital Signs Temp 97.9 F 01/12/17 06:23 Pulse 79 01/12/17 06:23 Resp 18 01/12/17 06:23 BP 136/87 01/12/17 06:23 Pulse Ox 98 01/12/17 06:23 Weight - Most Recent: 256 lb Lab Results - Last 24 hrs: Laboratory Results - last 24 hr 01/12/17 Range/Units 06:31 WBC 8.55 (3.98-10.04) K/mm3 RBC 3.47 L (3.98-5.22) M/mm3 Hgb 8.1 L (11.2-15.7) gm/L Hct 26.8 L (34.1-44.9) % MCV 77.2 L (79.4-94.8) fl MCH 23.3 L (25.6-32.2) pg MCHC 30.2 L (32.2-35.5) g/dl RDW Std Deviation 41.7 (36.4-46.3) fL Plt Count 237 (182-369) K/mm3 MPV 11.1 (9.4-12.3) fl Neut % (Auto) 69.2 (34.0-71.1) % Lymph % (Auto) 21.2 (19.3-51.7) % [place] % (Auto) 6.5 (4.7-12.5) % Eos % (Auto) 2.5 (0.7-5.8) Baso % (Auto) 0.4 (0.1-1.2) % Neut # (Auto) 5.92 (1.56-6.13) K/mm3 Lymph # (Auto) 1.81 (1.18-3.74) K/mm3 [place] # (Auto) 0.56 H (0.24-0.36) K/mm3 Eos # (Auto) 0.21 (0.04-0.36) K/mm3 Baso # (Auto) 0.03 (0.01-0.08) K/mm3 Med Orders - Current: Current Medications Acetaminophen (Tylenol) 650 mg PO Q4H PRN PRN Reason: mild pain or fever Benzocaine/Menthol (Dermoplast Pain Relief [place]) 0 gm TOP ASDIRECTED PRN PRN Reason: Perineal Comfort Measure Docusate Sodium (Colace) 100 mg PO BID PRN PRN Reason: Constipation Emollient Ointment (Lansinoh Hpa) 0 gm TOP ASDIRECTED PRN PRN Reason: Sore Nipples Ibuprofen (Motrin) 600 mg PO Q4H PRN PRN Reason: Mild pain or fever Witch Char (Tucks) 1 pad TOP ASDIRECTED PRN PRN Reason: Hemorrhoid pain Discontinued Medications Diphenhydramine HCl (Benadryl) 25 mg IVPUSH Q6H PRN PRN Reason: Pruritis Fentanyl (Sublimaze) 100 mcg EPIDUR Q3H PRN PRN Reason: Pain Last Admin: 01/10/17 22:07 Dose: 100 mcg Fentanyl/Bupivacaine HCl (Fentanyl/Bupivacaine/Ns 2 Mcg-0.125% 100 Ml) 100 ml EPIDUR ASDIRECTED [facility] Last Admin: 01/10/17 22:07 Dose: 100 ml Lactated Ringer's (Ringers, Lactated) 1,000 mls @ 40 mls/hr IV ASDIRECTED [facility] Last Admin: 01/11/17 03:57 Dose: 40 mls/hr Oxytocin/Lactated Ringer's (Pitocin In Lr 20 Units/1,000 Ml) Confirm Administered Dose 20 unit in 1,000 mls @ as directed IV .STK-MED ONE Stop: 01/10/17 21:08 Last Admin: 01/11/17 03:59 Dose: Not Given Oxytocin 20 unit/ Lactated (Ringer's) 1,002 mls @ 6.01 mls/hr IV TITRATE BRIANA; 2 MUNITS/MIN PRN Reason: Protocol Last Titration: 01/11/17 05:15 Dose: 6 munits/min, 18.03 mls/hr Oxytocin 20 unit/ Lactated (Ringer's) 1,002 mls @ 500 mls/hr IV ONETIME ONE Stop: 01/11/17 08:48 Last Admin: 01/11/17 08:18 Dose: 500 mls/hr Misoprostol (Cytotec) 25 mcg VAG Q3H BRIANA Stop: 01/10/17 17:01 Last Admin: 01/10/17 17:07 Dose: 25 mcg Misoprostol (Cytotec) 25 mcg VAG Q3H BRIANA Stop: 01/10/17 23:01 Last Admin: 01/11/17 04:00 Dose: Not Given Nalbuphine HCl (Nubain) 10 mg IVPUSH Q3H PRN PRN Reason: Pain Ondansetron HCl (Zofran) 4 mg IVPUSH ONETIME PRN PRN Reason: Nausea/Vomiting Sodium Chloride (Saline Flush) 10 ml FLUSH ASDIRECTED PRN PRN Reason: Keep Vein Open *Q Meaningful Use (DIS) - VTE *Q VTE Criteria *Q: - Stroke *Q Stroke Criteria *Q: - AMI *Q AMI Criteria *Q:
== END 2017-01-12 10:52 | disposition home or self-care (01) | DRG 775 ==
LOC: JD.OB 10:20 → JD.OBCHECK 10:20 → JD.OB 10:28 → JD.OBCHECK 16:09 → JD.OB 16:09 → OBSVTOIN 01-11 06:48
PROVIDERS: ADMIT Obstetrics & Gynecology; ATTEND Obstetrics & Gynecology
PROC: 10E0XZZ Delivery of Products of Conception, External Approach (ICD-10-PCS; principal; 2017-01-11)
PROC: 3E0P7VZ Introduction of Hormone into Female Reproductive, Via Natural or Artificial Opening (ICD-10-PCS; 2017-01-11)
PROC: 00HU33Z Insertion of Infusion Device into Spinal Canal, Percutaneous Approach (ICD-10-PCS; 2017-01-11)
PROC: 3E0R3BZ Introduction of Anesthetic Agent into Spinal Canal, Percutaneous Approach (ICD-10-PCS; 2017-01-11)
DX: O69.81X0 Labor and delivery complicated by cord around neck, without compression, not applicable or unspecified (principal); Z3A.39 39 weeks gestation of pregnancy; Z37.0 Single live birth; Z88.8 Allergy status to other drugs, medicaments and biological substances
CPT/HCPCS: 36415; 51702; 59409; 85025; 85027; 86850; 86870; 86900; 86901; A9270-GY; J2590; J3010; J7120

== ENCOUNTER 2017-06-30 19:32 | Emergency (ER) | payer MEDICAID ==
[2017-06-30 19:50] VITALS: BP 130/85
[2017-06-30] MEDS ORDERED: Sodium Chloride 0.9% 1,000 ML IV ONE (20:33)
[2017-06-30] MEDS ORDERED: Benztropine 1 MG Tab PO STA (20:33)
[2017-06-30] MEDS ORDERED: Ondansetron 4 MG/2 ML SDV IVPUSH ONE (20:33)
[2017-06-30] MEDS ORDERED: Haloperidol Lactate 5 MG/ML SDV IM ONE (20:33)
--- NOTE | 2017-06-30 20:35 | EDM.PDOC ---
ED HPI GENERAL MEDICAL PROBLEM - General Chief Complaint: Neurological Problem Stated Complaint: MS KIKIABAYONAS Time Seen by Provider: 06/30/17 20:00 Source of Information: Reports: Patient History Limitations: Reports: No Limitations - History of Present Illness INITIAL COMMENTS - FREE TEXT/NARRATIVE: The patient states that she has head pain (not a headache), felt worse on the right than the left, extending down her neck and into her back. She is unable to describe the character, other than "pain". She states that she has a tingling /numbness sensation to her entire back, but no weakness other than her usual left-sided weakness. She feels lightheaded. She has nausea. She has blurry vision in both eyes, but no other visual changes. No photophobia or phonophobia. The patient states that she has a history of MS, not currently under any treatment, and is concerned that her current symptoms may represent a flare of MS. The patient also has a remote history of migraines as a teenager, but notes that prior migraine medicines did not help. The last imaging study of her head was a CT scan just over a year ago. The patient's PCP is Gia Cuenca. The patient does not currently have a Neurologist. 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 ED EXAM, GENERAL - Physical Exam Exam: See Below Exam Limited By: No Limitations General Appearance: Alert, WD/WN, No Apparent Distress Eye Exam: Bilateral Eye: EOMI, Normal Inspection, PERRL Ears: Normal External Exam, Normal Canal, Hearing Grossly Normal, Normal TMs Nose: Normal Inspection, Normal Mucosa, No Blood Throat/Mouth: Normal Inspection, Normal Lips, Normal Teeth, Normal Gums, Normal Oropharynx, Normal Voice, No Airway Compromise Head: Atraumatic, Normocephalic Neck: Normal Inspection, Supple, Non-Tender, Full Range of Motion. No: Lymphadenopathy (L), Lymphadenopathy (R) Respiratory/Chest: No Respiratory Distress, No Accessory Muscle Use, Wheezing ( Diffuse, expiratory). No: Prolonged Expiration Cardiovascular: Normal Peripheral Pulses, Regular Rate, Rhythm, No Edema, No Gallop, No JVD, No Murmur, No Rub Peripheral Pulses: 4+: Radial (L), Radial (R) GI/Abdominal: Normal Bowel Sounds, Soft, Non-Tender, No Organomegaly, No Distention, No Abnormal Bruit, No Mass, Other (Obese) (Female) Exam: Deferred Rectal (Female) Exam: Deferred Back Exam: Normal Inspection, Full Range of Motion, NT Extremities: Normal Inspection, Normal Range of Motion, No Pedal Edema, Normal Capillary Refill Neurological: Alert, Oriented, CN II-XII Intact, Normal Cognition, Other (Mild weakness on the left, when compared to the right. Patient states that this is normal for her.) Psychiatric: Normal Affect Skin Exam: Warm, Dry, Intact, Normal Color, No Rash Course - Vital Signs Last Recorded V/S: Last Vital Signs Temp 36.3 C 06/30/17 19:48 Pulse 72 06/30/17 19:48 Resp 20 06/30/17 19:48 BP 130/85 06/30/17 19:48 Pulse Ox 99 06/30/17 19:48 - Orders/Labs/Meds Orders: Active Orders 24 hr Category Date Time Status Head wo Cont [CT] Stat Exams 06/30/17 20:33 Taken Meds: Medications Discontinued Medications Generic Name Dose Route Start Last Admin Trade Name Kevin PRN Reason Stop Dose Admin Benztropine Mesylate 1 mg 06/30/17 20:33 06/30/17 21:10 Cogentin PO 06/30/17 20:34 1 mg ONETIME STA Administration Haloperidol Lactate 5 mg 06/30/17 20:33 06/30/17 20:53 Haldol IM 06/30/17 20:34 5 mg ONETIME ONE Administration Sodium Chloride 1,000 mls @ 999 mls/hr 06/30/17 20:33 06/30/17 20:53 Normal Saline IV 06/30/17 21:33 999 mls/hr ONETIME ONE Administration Ondansetron HCl 4 mg 06/30/17 20:33 06/30/17 20:53 Zofran IVPUSH 06/30/17 20:34 4 mg ONETIME ONE Administration - Re-Assessments/Exams Free Text/Narrative Re-Assessment/Exam: 06/30/17 21:55 CT of the head without contrast is read by [facility] as "Normal head/ brain CT." 06/30/17 21:58 The patient reports that her headache went from 10/10 down to 6/10, about 10-15 minutes after receiving Haldol. This strongly suggests that the patient's headache is migrainous in etiology. I will discharge her home. She declined a prescription for Zofran, as she already has some at home. I will e-prescribe Maxalt, which she states she has not had previously. Departure - Departure Time of Disposition: 21:59 Disposition: Home, Self-Care 01 Condition: Good Clinical Impression: Migraine headache - Discharge Information Prescriptions: Rizatriptan [Maxalt [employer] TECHNICIAN] 1 tab PO Q2H PRN #3 tab.dis PRN Reason: Headache/Pain Instructions: Migraine Headache, [id number] Referrals: Gia Cuenca PA-C [Primary Care Provider] - Forms: ED Department Discharge Additional Instructions: You were seen in the emergency room for head pain extending to her neck and back , tingling and numbness of your entire back, lightheadedness, nausea, and blurry vision. Workup in the ER included a CT scan of her head, which was normal. Your head pain improved after receiving intramuscular Haldol, strongly suggesting that your headache was a migraine. Stay well hydrated and get plenty of rest and a quiet, dark place tonight. A prescription for the anti-migraine medicine Maxalt (rizatriptan) has been sent to the [facility]. Dissolve 1 tablet in your mouth at the earliest onset of migraine-like symptoms. You may repeat after 2 hours, to a maximum of 3 tablets within a 24-hour period. Follow-up with your PCP, Gia Cuenca, as needed. If any other problems, please do not hesitate to return to the ER. - My Orders Last 24 Hours: My Active Orders 06/30/17 20:33 Head wo Cont [CT] Stat - Assessment/Plan Last 24 Hours: My Active Orders 06/30/17 20:33 Head wo Cont [CT] Stat
--- NOTE | 2017-07-01 06:33 | CT ---
Head CT Technique: Multiple axial sections through the brain were obtained. Intravenous contrast was utilized. Comparison: No prior study. Findings: Ventricles along with basal cisterns and sulci over the convexities are within normal limits for the patient's age. No abnormal parenchymal densities are seen. Diffuse mucosal thickening is seen within the visualized sinuses. No acute calvarial abnormality is seen. Impression: 1. Diffuse opacification of the visualized sinuses presumably due to severe chronic sinusitis. 2. Nothing acute is otherwise seen on noncontrast head CT study. Disagree with preliminary report issued by [facility] (significant sinus disease is present) preliminary report [facility] was finalized on 06/30/17, 10:28 PM Central Time
== END 2017-06-30 22:11 | disposition home or self-care (01) ==
LOC: SUPCPDRO 19:32 → JD.ED 19:32
DX: G43.909 Migraine, unspecified, not intractable, without status migrainosus (principal); E66.9 Obesity, unspecified; Z88.8 Allergy status to other drugs, medicaments and biological substances
CPT/HCPCS: 70450; 96361; 96372; 96374; 99284; A9270; J1630; J2405; J7040